=== PATIENT | male | born 1990 | race Caucasian/White ===

== ENCOUNTER 2023-05-22 19:46 | Emergency (ER) | payer MEDICAID ==
[~2023-05-22] VITALS: Ht 182.9 cm; Wt 88.5 kg
[2023-05-22 20:36] VITALS: BP_SYST 141; PULSE 95; RESP 16; TEMP 97.3; O2SAT 96
[2023-05-22 22:23] VITALS: BP_SYST 128; PULSE 95; RESP 18; TEMP 97.7; O2SAT 98
== END 2023-05-22 22:23 | disposition home or self-care (01) ==
LOC: SED 19:46
DX: S09.91XA Unspecified injury of ear, initial encounter (principal); X58.XXXA Exposure to other specified factors, initial encounter; Y93.89 Activity, other specified; Y92.89 Other specified places as the place of occurrence of the external cause; Y99.8 Other external cause status
CPT/HCPCS: 99281